=== PATIENT | female | born 1945 | race Caucasian/White ===

== ENCOUNTER 2019-12-19 11:28 | Day surgery (SDC) | payer MEDICARE ==
[2019-12-09 16:03] LABS: BASOPHILS # (AUTO) 0.1 X10'3 (0-0.2); BASOPHILS % (AUTO) 1.4 % (0-1); EOSINOPHILS % (AUTO) 0.9 % (0-6); LYMPHOCYTES # (AUTO) 1.4 X10'3 (1.1-4.8); LYMPHOCYTES % (AUTO) 30.2 % (21-51); MEAN CORPUSCULAR HEMOGLOBIN 30.2 PG (27.0-31.0); MEAN CORPUSCULAR HGB CONC 32.8 g/dL (33.0-36.5); MEAN CORPUSCULAR VOLUME 91.9 FL (78-98); MONOCYTES # (AUTO) 0.3 X10'3 (0-0.9); MONOCYTES % (AUTO) 6.9 % (2-12); NEUTROPHILS # (AUTO) 2.7 X10'3 (1.8-7.7); NEUTROPHILS % (AUTO) 60.6 % (42-75); PRE OP HEMATOCRIT 40.1 % (35.0-45.0); PRE OP HEMOGLOBIN 13.2 g/dL (12.0-16.0); PRE OP PLATELET COUNT 232 X10'3 (140-440); RED BLOOD COUNT 4.36 X10'6 (4.20-5.60); RED CELL DISTRIBUTION WIDTH 13.3 % (11.5-14.5)
[2019-12-09 16:15] LABS: ALBUMIN 4.2 G/DL (3.4-5.0); ALBUMIN/GLOBULIN RATIO 1.5 (1.1-1.5); ALKALINE PHOSPHATASE 57 IU/L (46-116); BLOOD UREA NITROGEN 13 MG/DL (7-18); BUN/CREATININE RATIO 19.7 (6.6-38.0); CALCIUM 9.4 MG/DL (8.5-10.1); CHLORIDE 105 MMOL/L (99-107); CREATININE 0.66 MG/DL (0.40-0.90); PRE OP ALT 25 U/L (30-65); PRE OP ANION GAP 6 (8-16); PRE OP AST 20 U/L (10-37); PRE OP BILIRUB, TOTAL 0.4 MG/DL (0.0-1.0); PRE OP GLUCOSE 105 MG/DL (70-104); PRE OP POTASSIUM 4.1 MMOL/L (3.4-5.1); PRE OP SODIUM 140 MMOL/L (135-145); TOTAL CARBON DIOXIDE 29.5 MMOL/L (24-32); eGFR 88 ML/MIN
[~2019-12-19] VITALS: Ht 157.5 cm; Wt 51.7 kg
[2019-12-19] VITALS (8 sets, daily range): BP systolic 105–126; BP diastolic 69–78
[~2019-12-19 11:28] MED LIST: ASPI-611 PO; CHOL400T8 PO; HYDR-3972 PO; LYR25C PO; MESSAGE TO NURSING IV ONE; PARO30TA4 PO; ceFAZolin/D5W- 1GM premix 50 ML IV ONE; famotidine 20mg tablet PO ONE; ringers solution, lacted 1,000 ML IV SCH
[2019-12-19] MEDS ORDERED: LIDOcaine 1%/PF 5ML 10 MG/ML VIAL ONE (12:46)
[2019-12-19] MEDS ORDERED: propofol inj 20 ML IV ONE (12:46)
[2019-12-19] MEDS ORDERED: fentaNYL/PF 50MCG/1 ML 2ML syringe ONE (12:47)
[2019-12-19] MEDS ORDERED: bacitracin 15gm ointment TP ONE (13:13)
[2019-12-19] MEDS ORDERED: ROPIVAcaine 0.5% (5mg/ml) 30ml vial ONE (13:36)
[2019-12-19] MEDS ORDERED: acetaminophen 1,000mg/100ml IV 100 ML IV ONE (13:36)
[2019-12-19] MEDS ORDERED: ondansetron/PF 4mg/2ml inj ONE (13:36)
[2019-12-19] MEDS ORDERED: dexamethasone sod phosphate 4mg/ml inj. ONE (13:36)
--- NOTE | 2019-12-19 13:50 | NUR ---
Received from OR via BED, accompanied by Anesthesiologist DR VALENTINE and report given by Anesthesiolgist. PATIENT WAKING UP, DENIES PAIN, V/S WNL, CSM INTACT, 20G PIV LUE, DRESS TO RLE FOOT CDI
[2019-12-19] MEDS ORDERED: ondansetron/PF 4mg/2ml inj IV PRN ×2 (14:15→14:20)
[2019-12-19] MEDS ORDERED: morphine 4 MG/ML inj SYRINge IV PRN (14:15)
[2019-12-19] MEDS ORDERED: meperidine/PF 25mg/ml syringe IV PRN (14:15)
[2019-12-19] MEDS ORDERED: ringers solution, lacted 1,000 ML IV SCH (14:20)
[2019-12-19] MEDS ORDERED: morphine 2 MG/ML inj. syringe IV PRN (14:20)
--- NOTE | 2019-12-19 15:00 | NUR ---
PATIENT A&OX4, DENIES PAIN, V/S WNL, CSM INTACT, 20G PIV LUE D/C, DRESS TO E FOOT CDI. I HAVE REVIEWED D/C INSTRUCTIONS WITH PATIENT AND SHE HAS VERBALIZED UNDERSTANDING. PATIENT D/C HOME WITH ALL BELONGINGS.
== END 2019-12-19 15:00 | disposition home or self-care (01) ==
LOC: PAS 11:28
PROVIDERS: ATTEND Podiatrist Foot & Ankle Surgery
DX: M20.41 Other hammer toe(s) (acquired), right foot (principal); Z20.828 Contact with and (suspected) exposure to other viral communicable diseases; F32.9 Major depressive disorder, single episode, unspecified; G89.18 Other acute postprocedural pain; Z98.51 Tubal ligation status; Z72.89 Other problems related to lifestyle; Z79.82 Long term (current) use of aspirin; Z79.899 Other long term (current) drug therapy; Z98.1 Arthrodesis status; Z98.890 Other specified postprocedural states; Z83.3 Family history of diabetes mellitus
CPT/HCPCS: 28285; 36415; 64450; 73620; 76000; 80053; 82948; 85025; 87635; 93005; C1713; J0131; J0690; J1100; J2270; J2405; J2704; J3010; A4215; A4618; A6449; A7000; J2795; J7120